=== PATIENT | female | born 1990 | race Caucasian/White ===

== ENCOUNTER 2018-03-14 11:01 | Inpatient (IN) | payer OTHER ==
[~2018-03-14 11:01] MED LIST: MEPIVACAINE HCL 1% MPF 30 ML/VIAL SOL INFIL PRN; OXYTOCIN 10000 MU/ML SOL IM PRN; SODIUM CHLORIDE 0.9% FLUSH 10 ML SOL IV PRN
[2018-03-14] MEDS ORDERED: APAP/HYDROCODONE 1 EACH TABLET ONE (12:10)
[2018-03-14 13:16] VITALS: BP 122/75; PULSE 77; RESP 99; TEMP 97.5; O2SAT 99
== END 2018-03-14 15:45 | disposition short-term general hospital (02) | DRG 989 ==
LOC: OBSVTOIN 11:01 → OB 11:01
PROVIDERS: ADMIT Family Medicine; ATTEND Family Medicine
PROC: 10E0XZZ Delivery of Products of Conception, External Approach (ICD-10-PCS; principal; 2018-03-14)
PROC: 0KQM0ZZ Repair Perineum Muscle, Open Approach (ICD-10-PCS; 2018-03-14)
DX: Q21.1 Atrial septal defect (principal); I34.0 Nonrheumatic mitral (valve) insufficiency; O75.89 Other specified complications of labor and delivery; Z3A.38 38 weeks gestation of pregnancy; Z37.0 Single live birth
CPT/HCPCS: 59025; J0670; J2590; A9270-GY